=== PATIENT | male | born 1985 | race Caucasian/White ===

== ENCOUNTER 2016-11-29 16:42 | Emergency (ER) | payer MEDICAID ==
[2016-11-29] MEDS ORDERED: Sodium Chloride 0.9% 10 ML Syringe FLUSH PRN ×2 (16:52→16:56)
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
[2016-11-29] MEDS ORDERED: Diphtheria,Pertussis(Acell),Tetanus Vaccine 0.5 ML SDV inactive IM ONE (17:39)
[2016-11-29] MEDS ORDERED: Lidocaine 1% with EPINEPHrine 1:100,000 20 ML MDV INJECT ONE (17:39)
--- NOTE | 2016-11-29 18:13 | CT ---
CT cervical spine Technique: Multiple axial sections were obtained from above C1 inferiorly to the top of T2. Reconstructed sagittal and coronal images were reviewed. Comparison: No previous cervical spine imaging. Findings: Fracture is identified through the dens of C2. Fracture line is still visible. Fixation screw is seen which affixes this fracture in anatomic alignment. Mild anterior disc space narrowing is seen with spurring at C2-C3 is seen. Vertebral bodies and posterior arches are intact with no acute fracture being seen. Visualized mastoid sinuses and middle ear cavities are clear. Posterior skull base is intact. No bony central or bony neural foraminal stenosis is seen. No abnormal subluxation is seen on the reconstructed sagittal images. Impression: 1. 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 There is a fixation screw crossing this ununited fracture holding it in place. 2. Slight disc space narrowing and spurring seen anteriorly at C2-C3. 3. No additional abnormality is appreciated on CT study of the cervical spine. No acute abnormality is appreciated. Diagnostic code #2
--- NOTE | 2016-11-29 18:13 | CT ---
Head CT Technique: Multiple axial sections through the brain were obtained. Intravenous contrast was not utilized. Comparison: No previous intracranial imaging. Findings: Ventricles along with basal cisterns and sulci over the convexities appear within normal limits for the patient's age. No abnormal parenchymal densities are seen. No evidence of intracranial hemorrhage. No midline shift or mass effect is seen. Bone window settings were reviewed which shows mild mucosal thickening within the frontal and anterior ethmoid sinuses and right maxillary sinus likely representing mild chronic sinusitis. No acute calvarial abnormality is seen. Impression: 1. Sinus findings which are likely incidental but please correlate with the patient's symptoms. 2. No acute intracranial abnormality is appreciated. No acute calvarial abnormality is seen. Diagnostic code #2
[2016-11-29] MEDS ORDERED: Sodium Chloride 0.9% 2,000 ML IV ONE (19:13)
[2016-11-29 21:01] VITALS: BP 111/76
== END 2016-11-29 21:03 | disposition home or self-care (01) ==
LOC: JD.ED 16:42
DX: S01.81XA Laceration without foreign body of other part of head, initial encounter (principal); F10.129 Alcohol abuse with intoxication, unspecified; F17.210 Nicotine dependence, cigarettes, uncomplicated; Z87.820 Personal history of traumatic brain injury; V19.88XA Pedal cyclist (driver) (passenger) injured in other specified transport accidents, initial encounter; Y92.410 Unspecified street and highway as the place of occurrence of the external cause; Y90.1 Blood alcohol level of 20-39 mg/100 ml; Z23 Encounter for immunization
CPT/HCPCS: 12011; 36415; 70450; 72125; 80053; 80306; 84443; 85025; 85610; 85730; 90471; 96360; 99285; G0480; J7040; J7050; 90715; 99284-25

== ENCOUNTER 2017-02-06 06:52 | Emergency (ER) | payer MEDICAID ==
[2017-02-06 07:05] VITALS: BP 132/88
[2017-02-06] MEDS ORDERED: Diphtheria,Pertussis(Acell),Tetanus Vaccine 0.5 ML SDV IM ONE (07:12)
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
--- NOTE | 2017-02-06 08:45 | CT ---
CT facial bones Technique: Multiple axial sections through the facial bones were obtained. Reconstructed coronal and sagittal images were reviewed. Findings: Fracture is identified within the lateral right orbital wall and inferior right orbital floor. Orbital floor fracture is displaced by about 3 mm. Fracture is seen within the posterior wall of the right maxillary sinus showing inward displacement of the fragment by about 5 mm. Nondisplaced fracture within the anterior wall of the right maxillary sinus. Mucosal thickening seen within the frontal sinuses, ethmoid sinuses and within both maxillary sinuses. Air-fluid level is seen within the right maxillary sinus compatible with blood. No additional fracture is identified. Small amount of soft tissue air is seen lateral to the right orbit and right maxillary sinus compatible with air from the maxillary sinus fracture. Impression: 1. Fractures involving the right orbit and right maxillary sinus as described above. 2. Soft tissue air and sinus findings as described above. Diagnostic code #5
== END 2017-02-06 09:26 | disposition home or self-care (01) ==
LOC: JD.ED 06:52
DX: S02.31XA Fracture of orbital floor, right side, initial encounter for closed fracture (principal); S02.40CA Maxillary fracture, right side, initial encounter for closed fracture; Z23 Encounter for immunization; F17.210 Nicotine dependence, cigarettes, uncomplicated; Z87.820 Personal history of traumatic brain injury; V19.88XA Pedal cyclist (driver) (passenger) injured in other specified transport accidents, initial encounter; Y92.410 Unspecified street and highway as the place of occurrence of the external cause
CPT/HCPCS: 70486; 70486-26; 90471; 90715; 99284; 99284-25